=== PATIENT | male | born 2000 | race Hispanic/Latino ===

== ENCOUNTER 2023-09-15 05:07 | Emergency (ER) | payer BC ==
[~2023-09-15] VITALS: Ht 157.5 cm; Wt 90.7 kg
[2023-09-15 05:27] LABS: APPEARANCE,URINE CLEAR (CLEAR); BILIRUBIN,URINE NEGATIVE (NEGATIVE); COLOR,URINE LIGHT-YELLOW (YELLOW); GLUCOSE, URINE (UA) NEGATIVE (NEGATIVE); KETONES,URINE NEGATIVE (NEGATIVE); LEUKOCYTE ESTERASE ,URINE NEGATIVE Leu/uL (NEGATIVE); NITRATE,URINE NEGATIVE (NEGATIVE); OCCULT BLOOD,URINE LARGE (NEGATIVE); PROTEIN,URINE 20 mg/dL (NEGATIVE); UROBILINOGEN,URINE 0.2 mg/dL (0.2-1.0)
[2023-09-15] MEDS: KETOROLAC 30MG VIAL (30MG/ML) IVP ONE (05:31)
[2023-09-15] MEDS: FAMOTIDINE 20MG VIAL IV ONE (05:31)
[2023-09-15] MEDS: 0.9%NACL 1000ML 2,000 ML IV ONE (05:31)
[2023-09-15] MEDS: METOCLOPRAMIDE 10 MG/2 ML VIAL IVP ONE (05:31)
[2023-09-15] MEDS: METOCLOPRAMIDE 10 MG/2 ML VIAL ONE (05:32)
[2023-09-15] MEDS: CEFTRIAXONE 1G VIAL ONE (05:34)
[2023-09-15] MEDS: CEFTRIAXONE 2GM VIAL IVPB ONE (05:35)
[2023-09-15 05:39] LABS: BASOPHILS # (AUTO) 0.06 K/uL (0.00-0.20); BASOPHILS % (AUTO) 0.4 % (0.0-5.0); EOSINOPHILS # (AUTO) 0.05 K/uL (0.00-0.70); EOSINOPHILS % (AUTO) 0.4 % (0.0-8.0); HEMATOCRIT 44.5 % (42-54); IMMATURE GRANULOCYTE ABSOLUTE 0.06 K/uL (0-1); LYMPHOCYTES # (AUTO) 2.1 K/uL (1.0-4.8); LYMPHOCYTES % (AUTO) 14.6 % (21.0-51.0); MEAN CORPUSCULAR HEMOGLOBIN 29.2 pg (27.0-33.0); MEAN CORPUSCULAR VOLUME 88.3 fL (80-100); MONOCYTES # (AUTO) 0.6 K/uL (0.1-1.0); MONOCYTES % (AUTO) 4.3 % (3.0-13.0); NEUTROPHILS # (AUTO) 11.2 K/uL (1.8-7.7); NEUTROPHILS % (AUTO) 79.9 % (40.0-77.0); PLATELET COUNT (AUTO) 368 K/uL (130-400); RED BLOOD CELL COUNT(AUTO) 5.04 MIL/uL (4.50-6.20); RED CELL DISTRIBUTION WIDTH 12.4 % (11.0-15.5)
[2023-09-15 05:57] LABS: ADD UA MICROSCOPIC YES
[2023-09-15 06:00] LABS: MUCUS,URINE RARE LPF (None Seen); RBC,URINE TNTC /HPF (0-1); SQUAMOUS EPITHELIAL CELL,UR RARE /HPF (0-2); WBC,URINE 0-1 /HPF (0-1)
[2023-09-15 06:02] LABS: CREATININE 0.8 mg/dL (0.5-1.3); POTASSIUM 3.7 mmol/L (3.5-5.1)
[2023-09-15 06:10] LABS: ALBUMIN 4.2 g/dL (3.5-5.0); BILIRUBIN,TOTAL 0.3 mg/dL (0.2-1.0); TOTAL PROTEIN, SERUM 7.8 g/dL (6.0-8.3)
[2023-09-15 06:28] VITALS: BP 115/74; PULSE 97; RESP 15; O2SAT 97
[2023-09-15] MEDS ORDERED: KETO10 PO (07:00)
[2023-09-15] MEDS ORDERED: FAMO-136 PO (07:00)
[2023-09-15] MEDS ORDERED: TAMS-1 PO (07:00)
[2023-09-15] MEDS ORDERED: METO-296 PO (07:00)
== END 2023-09-15 07:30 | disposition home or self-care (01) ==
LOC: EDH 05:07
DX: N20.0 Calculus of kidney (principal)
CPT/HCPCS: 99284; 74176; 96365; 96375; 80053; 83690; 85025; 81001; 36415; J3490; J0696; J1885; J2765